=== PATIENT | male | born 1970 | race Caucasian/White ===

== ENCOUNTER 2020-03-16 13:11 | Emergency (ER) | payer OTHER ==
[~2020-03-16] VITALS: Ht 177.8 cm; Wt 86.4 kg
[~2020-03-16 13:11] MED LIST: MOTRIN400 MG PO; NO HOME MEDICATIONS; PRILOSEC40 MG PO
[2020-03-16 13:37] LABS: BASO % 0.3 % (0.0-2.0); EOS # 0.1 (0.0-0.7); EOS % 0.5 % (0-4.0); GRAN # 6.8 (1.4-6.5); GRAN % 73.9 % (42.2-75.2); HEMATOCRIT 45.2 % (42.0-52.0); HEMOGLOBIN 15.3 g/dl (13.5-18.0); LYMPH # 1.5 (1.2-3.4); LYMPH % 16.4 % (20.0-51.0); MEAN CELL VOLUME 86 fl (80.0-100.0); MEAN CORPUSCULAR HEMOGLOBIN 29 pg (27.0-31.0); MEAN CORPUSCULAR HGB CONC 34 g/dl (33.0-37.0); MEAN PLATELET VOLUME 10.8 fl (7.4-10.4); MONO # 0.8 (0.1-0.6); MONO % 8.6 % (1.7-9.3); PLATELET COUNT 235 K/mm3 (130-400); RED BLOOD COUNT 5.25 M/mm3 (4.20-5.60); REDCELL DISTRIBUTION WIDTH-CV 12.6 % (11.5-14.5)
[2020-03-16 13:43] LABS: ALANINE AMINOTRANSFERASE 25 U/L (4-49); ALBUMIN 4.5 gm/dL (3.5-5.0); ALKALINE PHOSPHATASE 72 U/L (50-136); ANION GAP 9 mmol/L (7-16); AST,SGOT 20 U/L (15-37); BILIRUBIN,TOTAL 0.6 mg/dL (0.0-1.0); BLOOD UREA NITROGEN 19 mg/dL (9-20); CALCIUM 9.8 mg/dL (8.4-10.2); CARBON DIOXIDE 26 mmol/L (22-30); CHLORIDE 102 mmol/L (98-107); CREATININE, serum 1.06 (0.66-1.25); GLUCOSE 108 mg/dL (74-106); POTASSIUM 4.4 mmol/L (3.4-5.0); SODIUM 136 mmol/L (137-145); TOTAL PROTEIN 7.9 gm/dL (6.4-8.2)
[2020-03-16 13:56] LABS: TROPONIN-I < 0.012 ng/mL (0.000-0.035)
[2020-03-16] MEDS ORDERED: LIDODERM 5% PATC1 EA TP (17:12)
[2020-03-16 17:27] VITALS: BP 110/80; PULSE 91; TEMP 98.6
== END 2020-03-16 17:28 | disposition home or self-care (01) ==
LOC: COL.ER 13:11
PROVIDERS: Physician Assistant
DX: B02.29 Other postherpetic nervous system involvement (principal)
CPT/HCPCS: J2270; J2405